=== PATIENT | female | born 1955 | race African-American/Black ===

== ENCOUNTER 2016-09-12 14:55 | Emergency (ER) | payer MEDICARE, OTHER ==
[~2016-09-12] VITALS: Ht 165.1 cm; Wt 140.6 kg
[~2016-09-12 14:55] MED LIST: ASPI325T8 PO; ATOR40TA PO; CIPR500T PO; GLYB5TAB3 PO; HYDR-2758 PO; LINA5TAB4 PO; LISI1TAB7 PO; LOSA1TAB17 PO; PHEN-444 PO
[2016-09-12 15:56] VITALS: BP 138/65
--- NOTE | 2016-09-12 16:05 | RAD ---
Right foot, 3 views, 09/12/2016: History: Foot pain There are moderate scattered degenerative changes with moderate spurring at the midfoot level. There is a large inferior calcaneal spur. Degenerative changes are present first MTP joint. No acute fracture or dislocation is identified. There is mild subcutaneous edema about the foot. IMPRESSION: 1. Moderate degenerative change. 2. No acute bony abnormality is detected.
--- NOTE | 2016-09-12 16:11 | PHYS DOC ---
Past Medical History Past Medical History: Diabetes-Type II, High Cholesterol, Hypertension, Kidney Stone Past Surgical History: Additional Past Surgical Histo: STENT IN LEFT KIDNEY Alcohol Use: Occasionally Drug Use: None Adult General Chief Complaint Chief Complaint: FOOT INJURY PAIN [facility] HPI Patient is a 61 year old female presents to the emergency department stating that she has having right foot pain and discomfort. She states that it starts underneath her foot in the middle and radiates around the lateral part of the foot onto the top of the foot. She denies any injury or trauma. She states the pain started on Sunday she hasn't been unable to bear weight has been using a cane to help with ambulation. Patient states she is taken Aleve and ibuprofen with minimal relief. She does have swelling noted no bruising or discoloration noted. Peripheral pulses 2+ cap refill brisk less than 2 seconds. Review of Systems Review of Systems Constitutional: Denies fever or chills [] Respiratory: Denies cough or shortness of breath [] Cardiovascular: No additional information not addressed in HPI [] Musculoskeletal: Denies back pain. Complaint of right foot pain Integument: Denies rash or skin lesions [] Neurologic: Denies headache, focal weakness or sensory changes [] Current Medications Current Medications Current Medications Medications (Trade) Dose Ordered Sig/Kaley Start Time Stop Time Status Last Admin Dose Admin Acetaminophen/ Hydrocodone Bitart (Lortab 5/325) 2 tab 1X ONCE 09/12/16 16:15 09/12/16 16:16 DC Allergies Allergies Allergies Coded Allergies Type Severity Reaction Last Updated Verified metformin Adverse Reaction Intermediate DIZZY 08/06/15 Yes Physical Exam Physical Exam Constitutional: Well developed, well nourished, no acute distress, non-toxic appearance. [] HENT: Normocephalic, atraumatic Eyes: PERRLA, EOMI, conjunctiva normal, no discharge. [] Neck: Normal range of motion, no tenderness, supple, no stridor. [] Cardiovascular:Heart rate regular rhythm Lungs & Thorax: No respiratory distress noted Skin: Warm, dry, no erythema, no rash. [] Extremities: Right foot tenderness, tenderness noted on the dorsal part of the foot with tenderness noted along the fifth metatarsal no discoloration patient does have swelling noted. Pulses are 2+ cap refill brisk less than 2 seconds. No cyanosis, no clubbing, ROM intact, no edema. [] Neurologic: Alert and oriented X 3, normal motor function, normal sensory function, no focal deficits noted. [] Psychologic: Affect normal, judgement normal, mood normal. [] Current Patient Data Vital Signs Vital Signs Date Time Temp Pulse Resp B/P (MAP) Pulse Ox O2 Delivery O2 Flow Rate FiO2 09/12/16 15:56 98.7 90 20 138/65 (89) 97 Room Air 98.7 EKG EKG [] Radiology/Procedures Radiology/Procedures [facility] [address] [place] [address] IMAGING REPORT Signed PATIENT: GREG CORTES ACCOUNT: [id number] : 1955 LOCATION: ER AGE: 61 SEX: F EXAM STATUS: PRE ER ORD. PHYSICIAN: JENNIFER MACEDO APRN REASON: woke up with mid right foot pain today, no known injury. PROCEDURE: FOOT RIGHT 3V Right foot, 3 views, 09/12/2016: History: Foot pain There are moderate scattered degenerative changes with moderate spurring at the midfoot level. There is a large inferior calcaneal spur. Degenerative changes are present first MTP joint. No acute fracture or dislocation is identified. There is mild subcutaneous edema about the foot. IMPRESSION: 1. Moderate degenerative change. 2. No acute bony abnormality is detected. DICTATED and SIGNED BY: ADONIS SOW MD DATE: 09/12/16 1601 CC: JENNIFER MACEDO APRN; UNKNOWN PCP NAME ~ [] Course & Med Decision Making Course & Med Decision Making Pertinent Labs and Imaging studies reviewed. (See chart for details) Patient will be provided with hydrocodone here in the emergency department. She' ll be discharged home with a posterior short leg splint with a walker. She'll be recommended to follow-up with orthopedic in the next week. Recommended ice packs elevation as much as possible. Ibuprofen or Aleve for pain and discomfort. Signs symptoms to return back to emergency department been provided. Patient agrees with discharge instructions treatment regimens and follow-up recommendations. [] Dragon Disclaimer Dragon Disclaimer This electronic medical record was generated, in whole or in part, using a voice recognition dictation system. Departure Departure Impression: Primary Impression: Right foot pain Disposition: 01 HOME, SELF-CARE Condition: STABLE Referrals: UNKNOWN PCP NAME (PCP) SHERI GARCIA MD Patient Instructions: Foot Sprain-Brief, RICE - Routine Care for Injuries, Easy -to-Read, Splint Care, [id number], Walker-Brief Additional Instructions: X-rays were did not reveal any abnormalities with the bones. Wear the splint to follow-up with orthopedic. Ice packs on 20 minutes off 20 minutes several times a day. Elevation as much as possible. Ibuprofen or Aleve for pain and discomfort. Use the walker to help with ambulation no weightbearing on the right foot. Follow-up with orthopedic in the next week. Return back to emergency prior signs symptoms become worse. Splinting Splinting : Location: right leg Hand-Made Type: orthoglass Splint: posterior short leg Pre-Proc Neuro Vasc Exam: normal Post-Proc Neuro Vasc Exam: normal JENNIFER MACEDO APRN Sep 12, 2016 16:11
[2016-09-12] MEDS ORDERED: HYDROcodone/APAP 5/325MG 1 TAB TABLET PO ONE (16:15)
== END 2016-09-12 17:02 | disposition home or self-care (01) ==
LOC: ER 14:55
DX: M79.671 Pain in right foot (principal); E11.9 Type 2 diabetes mellitus without complications; E78.00 Pure hypercholesterolemia, unspecified; I10 Essential (primary) hypertension; Z87.442 Personal history of urinary calculi; Z88.8 Allergy status to other drugs, medicaments and biological substances
CPT/HCPCS: 29515; 73630; 99284-25

== ENCOUNTER 2016-11-03 18:21 | Emergency (ER) | payer MEDICARE, OTHER ==
[~2016-11-03] VITALS: Ht 165.1 cm; Wt 144.7 kg
[2016-11-03] MEDS ORDERED: IV NORMAL SALINE 500ML BAG 500 ML IV ONE (18:45)
[2016-11-03 18:48] LABS: BASO # 0.1 x10^3/uL (0.0-0.2); BASO % 1 % (0-3); EOS % 6 % (0-3); HEMATOCRIT 40.2 % (36.0-47.0); HEMOGLOBIN 13.4 g/dL (12.0-15.5); LYMPH # 3.1 x10^3/uL (1.0-4.8); LYMPH % 29 % (24-48); MEAN CORPUSCULAR HEMOGLOBIN 32 pg (25-35); MEAN CORPUSCULAR HGB CONC 33 g/dL (31-37); MEAN CORPUSCULAR VOLUME 95 fL (79-100); MONO % 8 % (0-9); NEUT % 56 % (31-73); PLATELET COUNT 301 x10^3/uL (140-400); RED BLOOD COUNT 4.23 x10^6/uL (3.50-5.40); RED CELL DISTRIBUTION WIDTH 15.3 % (11.5-14.5); WHITE BLOOD COUNT 10.7 x10^3/uL (4.0-11.0)
[2016-11-03 18:59] LABS: PROTHROMBIN TIME PATIENT 12.5 SEC (11.7-14.0)
[2016-11-03 19:01] LABS: CALCIUM 9.2 mg/dL (8.5-10.1); CREATININE 1.5 mg/dL (0.6-1.0); GFR 42.7; POTASSIUM 3.6 mmol/L (3.5-5.1)
[2016-11-03 19:07] LABS: ALBUMIN 3.4 g/dL (3.4-5.0); ALBUMIN/GLOBULIN RATIO 0.6 (1.0-1.7); MAGNESIUM 1.7 mg/dL (1.8-2.4); TOTAL BILIRUBIN 0.3 mg/dL (0.2-1.0); TOTAL PROTEIN 8.7 g/dL (6.4-8.2)
[2016-11-03 19:16] LABS: BILIRUBIN,URINE NEGATIVE (NEG); GLUCOSE,URINE NEGATIVE (NEG); NITRITE,URINE NEGATIVE (NEG); PH,URINE 5.5; PROTEIN,URINE NEGATIVE (NEG-TRACE); UROBILINOGEN,URINE 0.2 mg/dL (0.2 mg/dL)
[2016-11-03 19:54] LABS: BACTERIA,URINE 0 /HPF (0-FEW); RBC,URINE 20-40 /HPF (0-2)
[2016-11-03 20:00] VITALS: BP 158/74
[2016-11-03] MEDS ORDERED: CEPH-264 PO (20:13)
--- NOTE | 2016-11-03 20:13 | PHYS DOC ---
Past Medical History Past Medical History: Diabetes-Type II, High Cholesterol, Hypertension, Kidney Stone Past Surgical History: Additional Past Surgical Histo: STENT IN LEFT KIDNEY Alcohol Use: Occasionally Additional Information: 1/2 PINT A GIN EVERY FEW DAYS Drug Use: None Adult General Chief Complaint Chief Complaint: Palpitations HPI HPI Patient is a 61 year old female who presents with palpitations. The patient states that she felt onset of anxiety & chest palpitations shortly prior to arrival here. She feels that her heart is racing. Denies chest pain, shortness of breath, lower extremity pain/swelling. She reports previous history of similar symptoms with cardiology evaluation, never received cardiac diagnosis. She has history of diabetes, hypertension, hyperlipidemia. Review of Systems Review of Systems Constitutional: Denies fever or chills Eyes: Denies change in visual acuity HENT: Denies nasal congestion or sore throat Respiratory: Denies cough or shortness of breath Cardiovascular: Reports palpitations. Denies chest pain or edema GI: Denies abdominal pain, nausea, vomiting, bloody stools or diarrhea : Denies dysuria or hematuria Musculoskeletal: Denies back pain or joint pain Integument: Denies rash or skin lesions Neurologic: Denies headache, focal weakness or sensory changes Current Medications Current Medications Current Medications Medications (Trade) Dose Ordered Sig/Kaley Start Time Stop Time Status Last Admin Dose Admin Lorazepam (Ativan) 1 mg 1X ONCE 11/03/16 18:45 11/03/16 18:46 DC 11/03/16 18:58 1 MG Sodium Chloride 500 ml @ 0 mls/hr 1X ONCE 11/03/16 18:45 11/03/16 18:46 DC 11/03/16 18:59 999 MLS/HR Allergies Allergies Allergies Coded Allergies Type Severity Reaction Last Updated Verified metformin Adverse Reaction Intermediate DIZZY 08/06/15 Yes Physical Exam Physical Exam Constitutional: morbidly obese, no acute distress, non-toxic appearance. HENT: Normocephalic, atraumatic, bilateral external ears normal, oropharynx moist, nose normal. Eyes: conjunctiva normal, no discharge. Neck: supple, no stridor. Cardiovascular: RRR, no murmurs, no edema. Lungs & Thorax: LCTAB, no wheezing, no respiratory distress. Abdomen: soft, nontender, nondistended. Skin: Warm, dry, no erythema, no rash. Back: No tenderness. Extremities: No tenderness, no edema. no calf tenderness or swelling Neurologic: Alert and oriented X 3, no focal deficits noted. Psychologic: anxious Current Patient Data Vital Signs Vital Signs Date Time Temp Pulse Resp B/P (MAP) Pulse Ox O2 Delivery O2 Flow Rate FiO2 11/03/16 20:00 88 20 158/74 (102) 96 Room Air 11/03/16 18:32 98.1 98.1 Lab Values Laboratory Tests Test 11/03/16 18:38 11/03/16 19:00 White Blood Count 10.7 x10^3/uL (4.0-11.0) Red Blood Count 4.23 x10^6/uL (3.50-5.40) Hemoglobin 13.4 g/dL (12.0-15.5) Hematocrit 40.2 % (36.0-47.0) Mean Corpuscular Volume 95 fL (79-100) Mean Corpuscular Hemoglobin 32 pg (25-35) Mean Corpuscular Hemoglobin Concent 33 g/dL (31-37) Red Cell Distribution Width 15.3 % (11.5-14.5) H Platelet Count 301 x10^3/uL (140-400) Neutrophils (%) (Auto) 56 % (31-73) Lymphocytes (%) (Auto) 29 % (24-48) Monocytes (%) (Auto) 8 % (0-9) Eosinophils (%) (Auto) 6 % (0-3) H Basophils (%) (Auto) 1 % (0-3) Neutrophils # (Auto) 5.9 x10^3uL (1.8-7.7) Lymphocytes # (Auto) 3.1 x10^3/uL (1.0-4.8) Monocytes # (Auto) 0.9 x10^3/uL (0.0-1.1) Eosinophils # (Auto) 0.6 x10^3/uL (0.0-0.7) Basophils # (Auto) 0.1 x10^3/uL (0.0-0.2) Prothrombin Time 12.5 SEC (11.7-14.0) Prothrombin Time INR 1.0 (0.8-1.1) PTT 24 SEC (24-38) Sodium Level 139 mmol/L (136-145) Potassium Level 3.6 mmol/L (3.5-5.1) Chloride Level 101 mmol/L (98-107) Carbon Dioxide Level 32 mmol/L (21-32) Anion Gap 6 (6-14) Blood Urea Nitrogen 25 mg/dL (7-20) H Creatinine 1.5 mg/dL (0.6-1.0) H Estimated GFR (Cockcroft-Gault) 42.7 BUN/Creatinine Ratio 17 (6-20) Glucose Level 192 mg/dL (70-99) H Calcium Level 9.2 mg/dL (8.5-10.1) Magnesium Level 1.7 mg/dL (1.8-2.4) L Total Bilirubin 0.3 mg/dL (0.2-1.0) Aspartate Amino Transferase (AST) 20 U/L (15-37) Alanine Aminotransferase (ALT) 33 U/L (14-59) Alkaline Phosphatase 75 U/L (46-116) Troponin I Quantitative < 0.017 ng/mL (0.000-0.055) LL-Vps-S-Type Natriuretic Peptide 13 pg/mL (0-124) Total Protein 8.7 g/dL (6.4-8.2) H Albumin 3.4 g/dL (3.4-5.0) Albumin/Globulin Ratio 0.6 (1.0-1.7) L Urine Collection Type Unknown Urine Color Yellow Urine Clarity Clear Urine pH 5.5 Urine Specific [place] 1.020 Urine Protein Negative mg/dL (NEG-TRACE) Urine Glucose (UA) Negative mg/dL (NEG) Urine Ketones (Stick) Negative mg/dL (NEG) Urine Blood Large (NEG) Urine Nitrite Negative (NEG) Urine Bilirubin Negative (NEG) Urine Urobilinogen Dipstick 0.2 mg/dL (0.2 mg/dL) Urine Leukocyte Esterase Moderate (NEG) Urine RBC 20-40 /HPF (0-2) Urine WBC 11-20 /HPF (0-4) Urine Bacteria 0 /HPF (0-FEW) Laboratory Tests 11/03/16 18:38 Laboratory Tests 11/03/16 18:38 EKG EKG interpreted by me: NSR rate 87, no acute St/T wave changes, normal intervals, no ectopy.[] Radiology/Procedures Radiology/Procedures CXR: no cardiomegaly, no infiltrate, no pneumothorax.[] Course & Med Decision Making Course & Med Decision Making Pertinent Labs and Imaging studies reviewed. (See chart for details) The patient presents with anxiety & palpitations. EKG shows sinus rhythm, high normal heart rate on tele monitor. Gave IV fluids & ativan. Obtained labs, EKG , CXR. No acute abnormality identified. She felt better & was resting comfortably at time of reassessment. She wanted to go home. Recommend rest, hydration, take all meds exactly as prescribed, follow up with PCP in 2-3 days. She wants to decrease her dose of losartan/HCTZ but I recommended continue as prescribed & discuss with PCP. Come back for severe chest pain or shortness of breath, any otherwise worsening condition. Discharged home in stable condition. [] Dragon Disclaimer Dragon Disclaimer This electronic medical record was generated, in whole or in part, using a voice recognition dictation system. Departure Departure Impression: Primary Impression: Palpitations Additional Impression: Urinary tract infection Disposition: HOME, SELF-CARE Condition: STABLE Referrals: NIDHI METZGER (PCP) Patient Instructions: Palpitations, [id number], Urinary Tract Infection, Easy -to-Read Additional Instructions: You were seen in the emergency department today for palpitations. You had a normal cardiac exam. However you did have a urinary tract infection. Please take the prescribed antibiotic. Take all other medications as prescribed by your doctor. Please make a follow-up appointment with your primary care doctor in 2-3 days; at that time he can discuss her medications and whether he should continue taking all of them. Return to the emergency department for fast heart rate, severe chest pain, severe shortness of breath, high fever, severe abdominal pain or back pain, uncontrolled vomiting, any otherwise worsening condition. Scripts Cephalexin (KEFLEX) 500 Mg Capsule 1 CAP PO BID, #14 CAP Prov: DYLLAN SAVAGE MD 11/03/16 Problem Qualifiers DYLLAN SAVAGE MD Nov 03, 2016 20:13
--- NOTE | 2016-11-04 07:49 | RAD ---
Chest radiograph 11/03/2016 8:34 PM Indication: Palpitations, history of diabetes Comparison: Chest radiograph 08/06/2015 Technique: Single portable upright frontal view of the chest is provided. Findings: Cardiomediastinal silhouette is within normal limits. No pleural effusions, pulmonary vascular congestion or pneumothorax. The lungs are clear. Mild acromioclavicular osteoarthrosis. Impression: No acute cardiopulmonary process.
--- NOTE | 2016-11-04 07:57 | EKG ---
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
== END 2016-11-03 20:20 | disposition home or self-care (01) ==
LOC: ER 18:21
DX: R00.2 Palpitations (principal); N39.0 Urinary tract infection, site not specified; F41.9 Anxiety disorder, unspecified; I10 Essential (primary) hypertension; E78.00 Pure hypercholesterolemia, unspecified; E11.9 Type 2 diabetes mellitus without complications; Z87.442 Personal history of urinary calculi; Z88.8 Allergy status to other drugs, medicaments and biological substances
CPT/HCPCS: 36415; 71010; 80053; 81001; 83735; 83880; 84484; 85025; 85610; 85730; 87086; 93005; 96361; 96374; 99285; J2060; J7040

== ENCOUNTER 2017-08-10 16:08 | Emergency (ER) | payer MEDICARE, OTHER ==
[2017-08-10 16:39] LABS: ADD MAN DIFF? NO
[2017-08-10 16:41] LABS: BASO # 0.1 x10^3/uL (0.0-0.2); BASO % 1 % (0-3); EOS # 0.6 x10^3/uL (0.0-0.7); EOS % 7 % (0-3); HEMATOCRIT 39.1 % (36.0-47.0); HEMOGLOBIN 13.3 g/dL (12.0-15.5); LYMPH # 2.7 x10^3/uL (1.0-4.8); LYMPH % 31 % (24-48); MEAN CORPUSCULAR HEMOGLOBIN 32 pg (25-35); MEAN CORPUSCULAR HGB CONC 34 g/dL (31-37); MEAN CORPUSCULAR VOLUME 94 fL (79-100); MONO # 0.7 x10^3/uL (0.0-1.1); MONO % 9 % (0-9); NEUT # 4.6 x10^3uL (1.8-7.7); NEUT % 53 % (31-73); PLATELET COUNT 292 x10^3/uL (140-400); RED BLOOD COUNT 4.17 x10^6/uL (3.50-5.40); RED CELL DISTRIBUTION WIDTH 15.3 % (11.5-14.5); WHITE BLOOD COUNT 8.7 x10^3/uL (4.0-11.0)
[2017-08-10] MEDS: ASPIRIN CHEWABLE 81 MG TABLET. PO (16:45)
[2017-08-10 18:36] LABS: ANION GAP 5 (6-14); BLOOD UREA NITROGEN 21 mg/dL (7-20); BUN/CREATININE RATIO 14 (6-20); CALCIUM 8.6 mg/dL (8.5-10.1); CARBON DIOXIDE 27 mmol/L (21-32); CHLORIDE 103 mmol/L (98-107); CREATININE 1.5 mg/dL (0.6-1.0); GFR 42.6; GLUCOSE 200 mg/dL (70-99); POTASSIUM 3.7 mmol/L (3.5-5.1); SODIUM 135 mmol/L (136-145)
[2017-08-10 18:39] LABS: PROTHROMBIN TIME PATIENT 12.8 SEC (11.7-14.0)
[2017-08-10 18:39] LABS: TROPONINI < 0.017 ng/mL (0.000-0.055)
[2017-08-10 18:40] LABS: ALBUMIN 2.8 g/dL (3.4-5.0); ALBUMIN/GLOBULIN RATIO 0.6 (1.0-1.7); ALK PHOS 62 U/L (46-116); ALT (SGPT) 24 U/L (14-59); AST (SGOT) 21 U/L (15-37); LIPASE 117 U/L (73-393); MAGNESIUM 1.7 mg/dL (1.8-2.4); TOTAL BILIRUBIN 0.2 mg/dL (0.2-1.0); TOTAL PROTEIN 7.8 g/dL (6.4-8.2)
[2017-08-10 18:44] LABS: NT-PRO BNP 22 pg/mL (0-124)
[2017-08-10 18:44] LABS: CKMB INDEX 0.4 % (0-4); CKMB MASS 0.7 ng/mL (0.0-3.6); CREATINE KINASE 168 U/L (26-192)
== END 2017-08-10 20:23 | disposition home or self-care (01) ==
LOC: ER 16:08
DX: F41.0 Panic disorder [episodic paroxysmal anxiety] (principal); E11.9 Type 2 diabetes mellitus without complications; E78.00 Pure hypercholesterolemia, unspecified; I10 Essential (primary) hypertension; Z88.8 Allergy status to other drugs, medicaments and biological substances
CPT/HCPCS: 36415; 70450; 71045; 80053; 82553; 83690; 83735; 83880; 84484; 85025; 85610; 93005; 96374; 99285-25; J2060

== ENCOUNTER → 2018-01-28 | Outpatient (CLI) | payer MEDICARE, OTHER ==
[2017-08-10 19:57] VITALS: BP 143/72
[~2018-01-28] MED LIST changes: +CEPH-264 PO; -HYDR-2758 PO; +HYDR-2761 PO; +LINA5TAB PO; -LINA5TAB4 PO; -LOSA1TAB17 PO; +LOSA1TAB22 PO
--- NOTE | 2018-01-28 15:31 | RAD ---
DATE: January 28, 2018 EXAM: MAMMO MOIZ SCREENING BILATERAL HISTORY: Screening study. COMPARISON: None. Baseline study This study was interpreted with the benefit of Computerized Aided Detection (CAD). 2-D digital mammographic views of both breasts were performed in the CC and MLO projections. 3-D digital tomosynthesis images of both breasts were performed in the CC and MLO projections and reviewed on a computer workstation. FINDINGS: Breast Density: FATTY The breast parenchyma is primarily fatty replaced. Breast parenchyma level density A.. There are no dominant suspicious masses, suspicious microcalcifications or evidence of architectural distortion. IMPRESSION: No mammographic indicators for malignancy. BI-RADS CATEGORY: 1 NEGATIVE RECOMMENDED FOLLOW-UP: 12M 12 MONTH FOLLOW-UP PQRS compliance statement: Patient information was entered into a reminder system with a target due date January 29, 2019 for the next mammogram. Mammography is a sensitive method for finding small breast cancers, but it does not detect them all and is not a substitute for careful clinical examination. A negative mammogram does not negate a clinically suspicious finding and should not result in delay in biopsying a clinically suspicious abnormality. "Our facility is accredited by the [employer] Mammography Program." The patient's breast density may affect the ability of mammography to detect breast cancer. There are 4 categories of breast density, A, B, C and D. Breast density A means that most of the breast tissue is replaced with adipose tissue and therefore is not dense. Breast density B means that the breast tissue is mildly dense and scattered. Breast density C means that the breast tissue is heterogeneously dense. Breast density D means that the breast tissue is very dense. Breast densities especially C and D may decrease the sensitivity of mammography to detect breast cancer. Therefore, the patient may benefit from 3-D breast mammography (3D breast tomography) as a part of their screening mammogram. Insurance may or may not pay for this additional imaging. The patient's breast density based on today's mammogram is category A.
== END | disposition home or self-care (01) ==
LOC: MAMMO 14:10
PROVIDERS: ATTEND Family Medicine
DX: Z12.31 Encounter for screening mammogram for malignant neoplasm of breast (principal)
CPT/HCPCS: 77063; 77067

== ENCOUNTER 2018-06-02 13:45 | Emergency (ER) | payer MEDICARE, OTHER ==
[~2018-06-02] VITALS: Ht 165.1 cm; Wt 143.3 kg
[2018-06-02] MEDS ORDERED: IV NORMAL SALINE 500ML BAG 500 ML IV ONE (14:15)
[2018-06-02] MEDS ORDERED: fentaNYL PF VIAL 100 MCG/2 ML VIAL IV ONE (14:15)
[2018-06-02 14:19] LABS: BASO # 0.1 x10^3/uL (0.0-0.2); BASO % 1 % (0-3); EOS # 0.4 x10^3/uL (0.0-0.7); EOS % 4 % (0-3); HEMATOCRIT 37.6 % (36.0-47.0); HEMOGLOBIN 12.3 g/dL (12.0-15.5); LYMPH # 2.1 x10^3/uL (1.0-4.8); LYMPH % 22 % (24-48); MEAN CORPUSCULAR HEMOGLOBIN 32 pg (25-35); MEAN CORPUSCULAR HGB CONC 33 g/dL (31-37); MEAN CORPUSCULAR VOLUME 96 fL (79-100); MONO # 1.1 x10^3/uL (0.0-1.1); MONO % 11 % (0-9); NEUT % 62 % (31-73); PLATELET COUNT 300 x10^3/uL (140-400); RED BLOOD COUNT 3.92 x10^6/uL (3.50-5.40); RED CELL DISTRIBUTION WIDTH 15.1 % (11.5-14.5); WHITE BLOOD COUNT 9.6 x10^3/uL (4.0-11.0)
--- NOTE | 2018-06-02 14:35 | RAD ---
EXAM: Right foot, 3 views. HISTORY: Pain. COMPARISON: 09/12/2016 FINDINGS: 3 views of the right foot are obtained. There is no fracture, dislocation or subluxation. There is a stable small cyst within the first metatarsal head. There is a moderate plantar spur. There is midfoot and tibiotalar spurring. IMPRESSION: 1. No acute osseous finding. 2. Stable mid and hindfoot osteoarthritis. 3. Moderate plantar spur. 4. Stable small cyst within the first metatarsal head. Electronically signed by: Jennifer Bernard MD (06/02/2018 2:31 PM) [facility]
[2018-06-02 14:37] LABS: CALCIUM 8.9 mg/dL (8.5-10.1); CREATININE 1.4 mg/dL (0.6-1.0); POTASSIUM 3.8 mmol/L (3.5-5.1)
[2018-06-02 14:41] LABS: ALBUMIN 3.3 g/dL (3.4-5.0); ALBUMIN/GLOBULIN RATIO 0.6 (1.0-1.7); C-REACTIVE PROTEIN 61.2 mg/L (0-3.3); TOTAL BILIRUBIN 0.5 mg/dL (0.2-1.0); TOTAL PROTEIN 8.8 g/dL (6.4-8.2); URIC ACID 9.3 mg/dL (2.6-6.0)
[2018-06-02 15:00] VITALS: BP 142/78
[2018-06-02] MEDS ORDERED: HYDROcodone/APAP 5/325MG 1 TAB TABLET PO ONE (15:00)
[2018-06-02] MEDS ORDERED: methylPREDNISolone SOD SUCC PF 125 MG/2 ML VIAL. IV ONE (15:00)
[2018-06-02] MEDS ORDERED: HYDR-3164 PO (15:02)
[2018-06-02] MEDS ORDERED: METH4TAB2 PO (15:02)
--- NOTE | 2018-06-02 15:02 | PHYS DOC ---
Past Medical History Past Medical History: Diabetes-Type II, High Cholesterol, Hypertension, Kidney Stone Past Surgical History: Additional Past Surgical Histo: STENT IN LEFT KIDNEY Alcohol Use: Occasionally Drug Use: None Adult General Chief Complaint Chief Complaint: FOOT INJURY PAIN HPI HPI Patient is a 63 year old female who presents with pinning of right foot pain. Patient complaining of pain in the metatarsal area for the last 4 days as a constant pain that getting worse with walking and touching her foot. Patient denies injury, fever and chills, focal neuro deficit. Patient states she had the same pain in left foot previously. She denies history of gout. Review of Systems Review of Systems Constitutional: Denies fever or chills [] Eyes: Denies change in visual acuity, redness, or eye pain [] HENT: Denies nasal congestion or sore throat [] Respiratory: Denies cough or shortness of breath [] Cardiovascular: No additional information not addressed in HPI [] GI: Denies abdominal pain, nausea, vomiting, bloody stools or diarrhea [] : Denies dysuria or hematuria [] Musculoskeletal: Denies back pain, reports joint pain [] Integument: Denies rash or skin lesions [] Neurologic: Denies headache, focal weakness or sensory changes [] Endocrine: Denies polyuria or polydipsia [] All other systems were reviewed and found to be within normal limits, except as documented in this note. Current Medications Current Medications Current Medications Medications (Trade) Dose Ordered Sig/Kaley Start Time Stop Time Status Last Admin Dose Admin Acetaminophen/ Hydrocodone Bitart (Lortab 5/325) 1 tab 1X ONCE 06/02/18 15:00 06/02/18 15:01 DC 06/02/18 15:05 1 TAB Fentanyl Citrate (Fentanyl 2ml Vial) 50 mcg 1X ONCE 06/02/18 14:15 06/02/18 14:16 DC 06/02/18 14:24 50 MCG Methylprednisolone Sodium Succinate (SOLU-Medrol 125MG VIAL) 125 mg 1X ONCE 06/02/18 15:00 06/02/18 15:01 DC 06/02/18 15:04 125 MG Sodium Chloride 500 ml @ 500 mls/hr 1X ONCE 06/02/18 14:15 06/02/18 15:14 DC 06/02/18 14:23 500 MLS/HR Allergies Allergies Allergies Coded Allergies Type Severity Reaction Last Updated Verified metformin Adverse Reaction Intermediate DIZZY 08/06/15 Yes Physical Exam Physical Exam Constitutional: Well developed, well nourished, moderate distress, non-toxic appearance. [] HENT: Normocephalic, atraumatic Eyes: PERRLA, EOMI, conjunctiva normal, no discharge. [] Neck: Normal range of motion, no tenderness, supple, no stridor. [] Cardiovascular:Heart rate regular rhythm, no murmur [] Lungs & Thorax: Bilateral breath sounds clear to auscultation [] Extremities: Right foot with mild edema and warm and tenderness in proximal metatarsal area without deformity, no cyanosis, no clubbing, ROM painful. Psychologic: Affect normal, judgement normal, mood normal. [] Current Patient Data Vital Signs Vital Signs Date Time Temp Pulse Resp B/P (MAP) Pulse Ox O2 Delivery O2 Flow Rate FiO2 06/02/18 15:00 78 18 142/78 (99) 98 Room Air 06/02/18 13:50 99.3 99.3 Lab Values Laboratory Tests Test 06/02/18 14:00 White Blood Count 9.6 x10^3/uL (4.0-11.0) Red Blood Count 3.92 x10^6/uL (3.50-5.40) Hemoglobin 12.3 g/dL (12.0-15.5) Hematocrit 37.6 % (36.0-47.0) Mean Corpuscular Volume 96 fL (79-100) Mean Corpuscular Hemoglobin 32 pg (25-35) Mean Corpuscular Hemoglobin Concent 33 g/dL (31-37) Red Cell Distribution Width 15.1 % (11.5-14.5) H Platelet Count 300 x10^3/uL (140-400) Neutrophils (%) (Auto) 62 % (31-73) Lymphocytes (%) (Auto) 22 % (24-48) L Monocytes (%) (Auto) 11 % (0-9) H Eosinophils (%) (Auto) 4 % (0-3) H Basophils (%) (Auto) 1 % (0-3) Neutrophils # (Auto) 6.0 x10^3uL (1.8-7.7) Lymphocytes # (Auto) 2.1 x10^3/uL (1.0-4.8) Monocytes # (Auto) 1.1 x10^3/uL (0.0-1.1) Eosinophils # (Auto) 0.4 x10^3/uL (0.0-0.7) Basophils # (Auto) 0.1 x10^3/uL (0.0-0.2) Sodium Level 140 mmol/L (136-145) Potassium Level 3.8 mmol/L (3.5-5.1) Chloride Level 101 mmol/L (98-107) Carbon Dioxide Level 27 mmol/L (21-32) Anion Gap 12 (6-14) Blood Urea Nitrogen 19 mg/dL (7-20) Creatinine 1.4 mg/dL (0.6-1.0) H Estimated GFR (Cockcroft-Gault) 46.0 BUN/Creatinine Ratio 14 (6-20) Glucose Level 143 mg/dL (70-99) H Uric Acid 9.3 mg/dL (2.6-6.0) H Calcium Level 8.9 mg/dL (8.5-10.1) Total Bilirubin 0.5 mg/dL (0.2-1.0) Aspartate Amino Transferase (AST) 28 U/L (15-37) Alanine Aminotransferase (ALT) 31 U/L (14-59) Alkaline Phosphatase 64 U/L (46-116) C-Reactive Protein, Quantitative 61.2 mg/L (0-3.3) H Total Protein 8.8 g/dL (6.4-8.2) H Albumin 3.3 g/dL (3.4-5.0) L Albumin/Globulin Ratio 0.6 (1.0-1.7) L Laboratory Tests 06/02/18 14:00 Laboratory Tests 06/02/18 14:00 EKG EKG [] Radiology/Procedures Radiology/Procedures [facility] [address] [facility] [place], [place] [id number] IMAGING REPORT Signed PATIENT: GREG CORTES ACCOUNT: [id number] : 1955 LOCATION: ER AGE: 63 SEX: F EXAM STATUS: PRE ER ORD. PHYSICIAN: QUINCY SCHROEDER MD REASON: pain without injury PROCEDURE: FOOT RIGHT 3V EXAM: Right foot, 3 views. HISTORY: Pain. COMPARISON: 09/12/2016 FINDINGS: 3 views of the right foot are obtained. There is no fracture, dislocation or subluxation. There is a stable small cyst within the first metatarsal head. There is a moderate plantar spur. There is midfoot and tibiotalar spurring. IMPRESSION: 1. No acute osseous finding. 2. Stable mid and hindfoot osteoarthritis. 3. Moderate plantar spur. 4. Stable small cyst within the first metatarsal head. Electronically signed by: Jennifer Blackwell MD (06/02/2018 2:31 PM) [facility] DICTATED and SIGNED BY: JENNIFER BLACKWELL MD DATE: 06/02/18 143 Course & Med Decision Making Course & Med Decision Making Pertinent Labs and Imaging studies reviewed. (See chart for details) Evaluation of patient in ER showed 63-year-old female patient with complaining of right foot pain for several days without injury. Patient had no focal tenderness and edema without sign of injury or abscess or cellulitis. Patient had elevation of uric acid. Patient had episodes of joint pain without injury previously. Patient treated with fentanyl and plan to discharge to diagnose of gouty arthritis and instruction to follow up with her primary care physician Aracely Disclaimer Aracely Disclaimer This electronic medical record was generated, in whole or in part, using a voice recognition dictation system. Departure Departure Impression: Primary Impression: Acute gouty arthritis Additional Impressions: Elevated uric acid in blood Renal insufficiency Disposition: HOME, SELF-CARE (at 1505) Condition: IMPROVED Referrals: NIDHI METZGER (PCP) Patient Instructions: Gout Additional Instructions: Drink plenty of liquids Follow-up with your primary care physician in 2-3 days for preventive treatment of gout Return to ER if not getting better Do not eat red meat Scripts Hydrocodone/Apap 5-325 (NORCO 5-325 TABLET) 1 Each Tablet 1-2 EACH PO PRN Q6HRS PRN for PAIN, #15 as needed for pain Prov: QUINCY SCHROEDER MD 06/02/18 Methylprednisolone (MEDROL) 4 Mg Tab.ds.pk 1 PKG PO UD for inflammation, #1 PKG Prov: QUINCY SCHROEDER MD 06/02/18 Problem Qualifiers QUINCY SCHROEDER MD Jun 02, 2018 15:02
== END 2018-06-02 15:26 | disposition home or self-care (01) ==
LOC: ER 13:45
DX: M10.9 Gout, unspecified (principal); N28.9 Disorder of kidney and ureter, unspecified; M19.071 Primary osteoarthritis, right ankle and foot; M77.31 Calcaneal spur, right foot; I10 Essential (primary) hypertension; E78.00 Pure hypercholesterolemia, unspecified; E11.9 Type 2 diabetes mellitus without complications; Z87.442 Personal history of urinary calculi; Z96.0 Presence of urogenital implants; Z88.8 Allergy status to other drugs, medicaments and biological substances
CPT/HCPCS: 36415; 73630; 80053; 84550; 85025; 86140; 96374; 96375; 99285; J2930; J3010; J7040

== ENCOUNTER 2019-04-30 08:13 | Observation (INO) | payer MEDICARE, OTHER ==
[~2019-04-30] VITALS: Ht 165.1 cm; Wt 140.5 kg
[~2019-04-30 08:13] MED LIST changes: +HYDR-3164 PO; +LISI1TAB20 PO; -LISI1TAB7 PO; +METH4TAB2 PO
[2019-04-30] MEDS ORDERED: IV NORMAL SALINE 1000ML BAG 1,000 ML IV SCH (08:54)
--- NOTE | 2019-04-30 08:59 | PHYS DOC ---
Past Medical History Past Medical History: Diabetes-Type II, High Cholesterol, Hypertension, Kidney Stone Past Surgical History: , Other Additional Past Surgical Histo: STENT IN LEFT KIDNEY Smoking Status: Never Smoker Alcohol Use: Heavy Drug Use: None Adult General Chief Complaint Chief Complaint: Palpitations HPI HPI Patient is a 64 year old -Guyanese female with past medical history significant for uncontrolled hypertension and palpitations who presents secondary to complaint of palpitations and also some sharp left-sided chest pain beneath her axilla that is worse with inspiration and started around 7:00 this morning and has been intermittent only with inspiration. She denies shortness of breath. No medications taken prior to arrival. The patient states that she takes her blood pressure medication in the afternoon and in the evening so she has not taken any this morning. Her systolic pressure is 189 which is elevated for this patient. Review of Systems Review of Systems All other systems were reviewed and found to be within normal limits, except as documented in this note. Current Medications Current Medications Current Medications Medications (Trade) Dose Ordered Sig/Kaley Start Time Stop Time Status Last Admin Dose Admin Aspirin (Children'S Aspirin) 324 mg 1X ONCE 04/30/19 09:00 04/30/19 09:05 DC 04/30/19 09:27 324 MG Hydralazine HCl (Apresoline Inj) 10 mg 1X ONCE 04/30/19 09:00 04/30/19 09:05 DC 04/30/19 09:28 10 MG Sodium Chloride 1,000 ml @ 1,000 mls/hr Q1H 04/30/19 08:54 04/30/19 09:53 DC 04/30/19 09:28 1,000 MLS/HR Allergies Allergies Allergies Coded Allergies Type Severity Reaction Last Updated Verified metformin Adverse Reaction Intermediate DIZZY 08/06/15 Yes Physical Exam Physical Exam Constitutional: Well developed, well nourished, no acute distress, non-toxic appearance. [] HENT: Normocephalic, atraumatic, bilateral external ears normal, oropharynx moist, no oral exudates, nose normal. [] Eyes: PERRLA, EOMI, conjunctiva normal, no discharge. [] Neck: Normal range of motion, no tenderness, supple, no stridor. [] Cardiovascular:Heart rate regular rhythm, no murmur [] Lungs & Thorax: Bilateral breath sounds clear to auscultation [] Abdomen: Bowel sounds normal, soft, no tenderness, no masses, no pulsatile masses. [] Skin: Warm, dry, no erythema, no rash. [] Back: No tenderness, no CVA tenderness. [] Extremities: No tenderness, no cyanosis, no clubbing, ROM intact, no edema. [] Neurologic: Alert and oriented X 3, normal motor function, normal sensory function, no focal deficits noted. [] Psychologic: Affect normal, judgement normal, mood normal. [] Current Patient Data Vital Signs Vital Signs Date Time Temp Pulse Resp B/P (MAP) Pulse Ox O2 Delivery O2 Flow Rate FiO2 04/30/19 09:28 68 178/81 04/30/19 08:27 99.0 17 95 Room Air 99.0 Lab Values Laboratory Tests Test 04/30/19 09:20 White Blood Count 7.4 x10^3/uL (4.0-11.0) Red Blood Count 4.33 x10^6/uL (3.50-5.40) Hemoglobin 13.9 g/dL (12.0-15.5) Hematocrit 41.5 % (36.0-47.0) Mean Corpuscular Volume 96 fL (79-100) Mean Corpuscular Hemoglobin 32 pg (25-35) Mean Corpuscular Hemoglobin Concent 34 g/dL (31-37) Red Cell Distribution Width 15.4 % (11.5-14.5) H Platelet Count 273 x10^3/uL (140-400) Neutrophils (%) (Auto) 55 % (31-73) Lymphocytes (%) (Auto) 30 % (24-48) Monocytes (%) (Auto) 9 % (0-9) Eosinophils (%) (Auto) 5 % (0-3) H Basophils (%) (Auto) 1 % (0-3) Neutrophils # (Auto) 4.0 x10^3/uL (1.8-7.7) Lymphocytes # (Auto) 2.2 x10^3/uL (1.0-4.8) Monocytes # (Auto) 0.7 x10^3/uL (0.0-1.1) Eosinophils # (Auto) 0.4 x10^3/uL (0.0-0.7) Basophils # (Auto) 0.1 x10^3/uL (0.0-0.2) Prothrombin Time 12.5 SEC (11.7-14.0) Prothrombin Time INR 1.0 (0.8-1.1) Activated Partial Thromboplast Time 27 SEC (24-38) Sodium Level 138 mmol/L (136-145) Potassium Level 4.0 mmol/L (3.5-5.1) Chloride Level 103 mmol/L (98-107) Carbon Dioxide Level 26 mmol/L (21-32) Anion Gap 9 (6-14) Blood Urea Nitrogen 13 mg/dL (7-20) Creatinine 1.1 mg/dL (0.6-1.0) H Estimated GFR (Cockcroft-Gault) 60.5 BUN/Creatinine Ratio 12 (6-20) Glucose Level 169 mg/dL (70-99) H Calcium Level 8.8 mg/dL (8.5-10.1) Magnesium Level 1.7 mg/dL (1.8-2.4) L Total Bilirubin 0.3 mg/dL (0.2-1.0) Aspartate Amino Transferase (AST) 23 U/L (15-37) Alanine Aminotransferase (ALT) 25 U/L (14-59) Alkaline Phosphatase 70 U/L (46-116) Creatine Kinase 88 U/L (26-192) Creatine Kinase MB (Mass) < 0.5 ng/mL (0.0-3.6) Creatine Kinase MB Relative Index % (0-4) Troponin I Quantitative < 0.017 ng/mL (0.000-0.055) EH-Kly-G-Type Natriuretic Peptide 61 pg/mL (0-124) Total Protein 7.0 g/dL (6.4-8.2) Albumin 2.9 g/dL (3.4-5.0) L Albumin/Globulin Ratio 0.7 (1.0-1.7) L Lipase 91 U/L (73-393) Thyroid Stimulating Hormone (TSH) 2.415 uIU/mL (0.358-3.74) Laboratory Tests 04/30/19 09:20 Laboratory Tests 04/30/19 09:20 EKG EKG [] EKG shows a sinus rhythm with no ST changes and a heart rate of 71 with normal intervals. Radiology/Procedures Radiology/Procedures Single view of the chest. 04/30/2019 8:58 AM Indication: Chest pain Comparison: Chest radiograph August 10, 2017 Findings: There is no focal consolidation. There is no pleural effusion or pneumothorax. The cardiomediastinal silhouette and pulmonary vasculature are within normal limits. No acute osseous abnormalities are seen. Impression: No evidence of acute cardiopulmonary process. [] Course & Med Decision Making Course & Med Decision Making Pertinent Labs and Imaging studies reviewed. (See chart for details) 1050: This patient was seen for atypical chest pain symptoms and palpitations. She also had elevated blood pressure. She was given 10 mg of hydralazine and her blood pressure was trending down to 168 systolic but after she got up to go to the bathroom it went back up to 205 systolic. The patient also complains of continued epigastric discomfort/a sensation of needing to belch. Given her risk factors and ongoing symptoms and elevated blood pressure that she has been having trouble controlling recently I did recommend admission for observation and chest pain rule out and blood pressure control. We will go ahead and give her 4 mg of Zofran IV and admit for further work-up and evaluation. Dragon Disclaimer Dragon Disclaimer This electronic medical record was generated, in whole or in part, using a voice recognition dictation system. Departure Departure Impression: Primary Impression: Atypical chest pain Additional Impressions: Hypertension Palpitations Disposition: ADMITTED INPATIENT Admitting Physician: HIMS Condition: STABLE Referrals: NIDHI METZGER (PCP) The HEART Score for CP Pts HEART Score for Chest Pain: HEART Score for Chest Pain Response (Comments) Value History Slighlty/Non-Suspicious 0 ECG Normal 0 Age >45 - < 65 1 Risk Factors >3 Risk Factors or Hx CAD 2 Troponin < Normal Limit 0 Total 3 Risk Factors: Risk Factors: DM, HTN, obesity. Risk Scores: Score 0 - 3: 2.5% MACE over next 6 weeks - Discharge Home Score 4 - 6: 20.3% MACE over next 6 weeks - Admit for Clinical Observation Score 7 - 10: 72.7% MACE over next 6 weeks - Early Invasive Strategies Problem Qualifiers KESHA RUFFIN DO Apr 30, 2019 08:59
[2019-04-30] MEDS ORDERED: ASPIRIN CHEWABLE 81 MG TABLET. PO ONE (09:00)
[2019-04-30] MEDS ORDERED: hydrALAZINE 20 MG/ML VIAL. IVP ONE (09:00)
--- NOTE | 2019-04-30 09:26 | RAD ---
Single view of the chest. 04/30/2019 8:58 AM Indication: Chest pain Comparison: Chest radiograph August 10, 2017 Findings: There is no focal consolidation. There is no pleural effusion or pneumothorax. The cardiomediastinal silhouette and pulmonary vasculature are within normal limits. No acute osseous abnormalities are seen. Impression: No evidence of acute cardiopulmonary process. Electronically signed by: Mj Haro MD (04/30/2019 9:23 AM) [id number]
[2019-04-30 09:42] LABS: BASO # 0.1 x10^3/uL (0.0-0.2); BASO % 1 % (0-3); EOS # 0.4 x10^3/uL (0.0-0.7); EOS % 5 % (0-3); HEMATOCRIT 41.5 % (36.0-47.0); HEMOGLOBIN 13.9 g/dL (12.0-15.5); LYMPH # 2.2 x10^3/uL (1.0-4.8); LYMPH % 30 % (24-48); MEAN CORPUSCULAR HEMOGLOBIN 32 pg (25-35); MEAN CORPUSCULAR HGB CONC 34 g/dL (31-37); MEAN CORPUSCULAR VOLUME 96 fL (79-100); MONO # 0.7 x10^3/uL (0.0-1.1); MONO % 9 % (0-9); NEUT % 55 % (31-73); PLATELET COUNT 273 x10^3/uL (140-400); RED BLOOD COUNT 4.33 x10^6/uL (3.50-5.40); RED CELL DISTRIBUTION WIDTH 15.4 % (11.5-14.5); WHITE BLOOD COUNT 7.4 x10^3/uL (4.0-11.0)
[2019-04-30 09:44] LABS: CALCIUM 8.8 mg/dL (8.5-10.1); CREATININE 1.1 mg/dL (0.6-1.0); GFR 60.5
--- NOTE | 2019-04-30 09:47 | EKG ---
[facility] [address] [place] [address] Test Date: 2019-04-30 Test Time: 08:42:02 Pat Name: GREG CORTES Department: Room: Gender: F Rn Bariatric: : 1955 Requested By: KESHA RUFFIN Order Number: [id number] Reading MD: Measurements Intervals Vera Rate: 71 P: 45 PA: 184 QRS: -18 QRSD: 86 T: 26 QT: 392 QTc: 430 Interpretive Statements SINUS RHYTHM VENTRICULAR PREMATURE COMPLEX(ES) LEFTWARD AXIS ABNORMAL ECG No previous ECG available for comparison
[2019-04-30 09:50] LABS: ALBUMIN 2.9 g/dL (3.4-5.0); ALBUMIN/GLOBULIN RATIO 0.7 (1.0-1.7); MAGNESIUM 1.7 mg/dL (1.8-2.4); TOTAL BILIRUBIN 0.3 mg/dL (0.2-1.0)
[2019-04-30 10:07] LABS: CREATINE KINASE 88 U/L (26-192)
[2019-04-30 10:11] LABS: PROTHROMBIN TIME PATIENT 12.5 SEC (11.7-14.0)
[2019-04-30] MEDS ORDERED: ONDANSETRON PF 4 MG/2 ML VIAL. IV PRN (11:00)
[2019-04-30] MEDS ORDERED: NITROGLYCERIN SUBLINGUAL 0.4 MG BOTTLE OF 25. SL PRN (11:00)
[2019-04-30] MEDS ORDERED: MORPHINE SULFATE 2 MG/ML VIAL. IV PRN (11:00)
[2019-04-30] MEDS ORDERED: ONDANSETRON PF 4 MG/2 ML VIAL. IVP ONE (11:00)
[2019-04-30] MEDS ORDERED: ASPIRIN 325 MG TABLET PO PRN (12:15)
[2019-04-30] MEDS ORDERED: HYDROcodone/APAP 5/325MG 1 TAB TABLET PO PRN ×2 (12:15)
--- NOTE | 2019-04-30 12:18 | PDOC1 ---
History and Physical Date of Admission Date of Admission 04/30/2019 Identification/Chief Complaint Chief Complaint Palpitations History of Present Illness History of Present Illness Patient is a 64-year-old female with past medical history of hypertension diabetes and dyslipidemia who has been in her usual state of health until approximately 1 week ago when she started complaining of urinary symptoms. The patient saw her primary care physician who started her on antibiotics for a diagnosed urinary tract infection. Patient refers having symptoms that she describes as "feeling funny" while taking her antibiotic. Of note is that the patient has not had any other medical changes and no changes to her prescription drugs either. Patient on Sunday started complaining of palpitations she went to her primary care physician and was found to have a blood pressure 180/100. She was told to double up her blood pressure medications which she has done. Patient despite this intervention has continued to have the same palpitations associated with a high blood pressure reason why she decided to come to the emergency department for further evaluation and treatment. Patient was found to be hypertensive when asked about her diet unfortunately the patient seems to not have observed a low-salt diet. The patient in the emergency department has presented a hypertension of 170 range. The patient denies any headache no blurred vision no signs of encephalopathy she does describe some chest discomfort underneath her breast bilaterally that not has localized over the precordial area but no sensation of impending doom no radiation to the carotids or the jaw. The patient denies diaphoresis with the event no nausea vomiting diarrhea no other complaints voiced. She does continue to have the palpitations that most likely are associated with her uncontrolled hypertension. We were asked to admit the patient for a cardiac rule out and to work on her blood pressure. Of note is that the patient presents the symptoms every single time she takes her antibiotic. I have assured her that I will change the antibiotic at this time and we will continue with her treatment so she can finalize her UTI treatment. Plan of care explained detail concerns addressed to the best of my abilities Past Medical History Cardiovascular: HTN, Hyperlipidemia Pulmonary: No pertinent hx CENTRAL NERVOUS SYSTEM: Periperal neuropathy GI: Constipation, GERD Heme/Onc: No pertinent hx Hepatobiliary: No pertinent hx Psych: No pertinent hx Rheumatologic: No pertinent hx Infectious disease: No pertinent hx Renal/: Other Endocrine: Diabetes Past Surgical History Past Surgical History: , Other Family History Family History: Coronary Artery Disease Social History ALCOHOL: other Drugs: None Current Problem List Problem List Problems Medical Problems: (1) Atypical chest pain Status: Acute (2) Hypertension Status: Acute (3) Palpitations Status: Acute Current Medications Current Medications Current Medications Medications (Trade) Dose Ordered Sig/Kaley Start Time Stop Time Status Last Admin Dose Admin Acetaminophen/ Hydrocodone Bitart (Lortab 5/325) 1 tab PRN Q6HRS PRN 04/30/19 12:15 Aspirin (Tomasa Aspirin) 325 mg PRN DAILY PRN 04/30/19 12:15 Aspirin (Children'S Aspirin) 324 mg 1X ONCE 04/30/19 09:00 04/30/19 09:05 DC 04/30/19 09:27 324 MG Atorvastatin Calcium (Lipitor) 40 mg QHS 04/30/19 21:00 Hydralazine HCl (Apresoline Inj) 10 mg 1X ONCE 04/30/19 09:00 04/30/19 09:05 DC 04/30/19 09:28 10 MG Linagliptin (Tradjenta) 5 mg DAILY 04/30/19 12:30 Morphine Sulfate (Morphine Sulfate) 2 mg PRN Q2HR PRN 04/30/19 11:00 05/01/19 10:59 Nitroglycerin (Nitrostat) 0.4 mg PRN Q5MIN PRN 04/30/19 11:00 04/30/19 11:24 0.4 MG Non-Formulary Medication (Losartan/ Hydrochlorothiazide (Losartan-Hctz 100-25 Mg Tab)) 1 tab DAILY 05/01/19 09:00 UNV Ondansetron HCl (Zofran) 4 mg PRN Q8HRS PRN 04/30/19 11:00 05/01/19 10:59 Sodium Chloride 1,000 ml @ 1,000 mls/hr Q1H 04/30/19 08:54 04/30/19 09:53 DC 04/30/19 09:28 1,000 MLS/HR Allergies Allergies Allergies Coded Allergies Type Severity Reaction Last Updated Verified metformin Adverse Reaction Intermediate DIZZY 08/06/15 Yes ROS Review of System CONSTITUTIONAL: No fever or chills EYES: No recent changes SKIN: No rash or itching CARDIOVASCULAR: No chest pain, syncope, palpitations, or edema RESPIRATORY: No SOB or cough GASTROINTESTINAL: No nausea, vomiting or abdominal pain NEUROLOGICAL: No headaches or weakness ENDOCRINE: No cold or heat intolerance GENITOURINARY: No urgency or frequency of urination MUSCULOSKELETAL: No back pain or joint pain LYMPHATICS: No enlarged lymph nodes PSYCHIATRIC: No anxiety or depression Physical Exam Physical Exam GEN.: No apparent distress. Alert and oriented. HEENT: Head is normocephalic, atraumatic NECK: Supple. LUNGS: Clear to auscultation. HEART: RRR, S1, S2 present. Peripheral pulses intact ABDOMEN: Soft, nontender. Positive bowel sounds. EXTREMITIES: Without any cyanosis. NEUROLOGIC: Normal speech, normal tone PSYCHIATRIC: Normal affect, normal mood. SKIN: No ulcerations Vitals Vitals Vital Signs Date Time Temp Pulse Resp B/P (MAP) Pulse Ox O2 Delivery O2 Flow Rate FiO2 04/30/19 11:24 76 168/77 04/30/19 08:27 99.0 17 95 Room Air 99.0 Labs Labs Laboratory Tests Test 04/30/19 09:20 White Blood Count 7.4 x10^3/uL (4.0-11.0) Red Blood Count 4.33 x10^6/uL (3.50-5.40) Hemoglobin 13.9 g/dL (12.0-15.5) Hematocrit 41.5 % (36.0-47.0) Mean Corpuscular Volume 96 fL (79-100) Mean Corpuscular Hemoglobin 32 pg (25-35) Mean Corpuscular Hemoglobin Concent 34 g/dL (31-37) Red Cell Distribution Width 15.4 % (11.5-14.5) Platelet Count 273 x10^3/uL (140-400) Neutrophils (%) (Auto) 55 % (31-73) Lymphocytes (%) (Auto) 30 % (24-48) Monocytes (%) (Auto) 9 % (0-9) Eosinophils (%) (Auto) 5 % (0-3) Basophils (%) (Auto) 1 % (0-3) Neutrophils # (Auto) 4.0 x10^3/uL (1.8-7.7) Lymphocytes # (Auto) 2.2 x10^3/uL (1.0-4.8) Monocytes # (Auto) 0.7 x10^3/uL (0.0-1.1) Eosinophils # (Auto) 0.4 x10^3/uL (0.0-0.7) Basophils # (Auto) 0.1 x10^3/uL (0.0-0.2) Prothrombin Time 12.5 SEC (11.7-14.0) Prothromb Time International Ratio 1.0 (0.8-1.1) Activated Partial Thromboplast Time 27 SEC (24-38) Sodium Level 138 mmol/L (136-145) Potassium Level 4.0 mmol/L (3.5-5.1) Chloride Level 103 mmol/L (98-107) Carbon Dioxide Level 26 mmol/L (21-32) Anion Gap 9 (6-14) Blood Urea Nitrogen 13 mg/dL (7-20) Creatinine 1.1 mg/dL (0.6-1.0) Estimated GFR (Cockcroft-Gault) 60.5 BUN/Creatinine Ratio 12 (6-20) Glucose Level 169 mg/dL (70-99) Calcium Level 8.8 mg/dL (8.5-10.1) Magnesium Level 1.7 mg/dL (1.8-2.4) Total Bilirubin 0.3 mg/dL (0.2-1.0) Aspartate Amino Transf (AST/SGOT) 23 U/L (15-37) Alanine Aminotransferase (ALT/SGPT) 25 U/L (14-59) Alkaline Phosphatase 70 U/L (46-116) Creatine Kinase 88 U/L (26-192) Creatine Kinase MB (Mass) < 0.5 ng/mL (0.0-3.6) Creatine Kinase MB Relative Index % (0-4) Troponin I Quantitative < 0.017 ng/mL (0.000-0.055) FW-Eoz-E-Type Natriuretic Peptide 61 pg/mL (0-124) Total Protein 7.0 g/dL (6.4-8.2) Albumin 2.9 g/dL (3.4-5.0) Albumin/Globulin Ratio 0.7 (1.0-1.7) Lipase 91 U/L (73-393) Thyroid Stimulating Hormone (TSH) 2.415 uIU/mL (0.358-3.74) Laboratory Tests Test 04/30/19 09:20 White Blood Count 7.4 x10^3/uL (4.0-11.0) Red Blood Count 4.33 x10^6/uL (3.50-5.40) Hemoglobin 13.9 g/dL (12.0-15.5) Hematocrit 41.5 % (36.0-47.0) Mean Corpuscular Volume 96 fL (79-100) Mean Corpuscular Hemoglobin 32 pg (25-35) Mean Corpuscular Hemoglobin Concent 34 g/dL (31-37) Red Cell Distribution Width 15.4 % (11.5-14.5) Platelet Count 273 x10^3/uL (140-400) Neutrophils (%) (Auto) 55 % (31-73) Lymphocytes (%) (Auto) 30 % (24-48) Monocytes (%) (Auto) 9 % (0-9) Eosinophils (%) (Auto) 5 % (0-3) Basophils (%) (Auto) 1 % (0-3) Neutrophils # (Auto) 4.0 x10^3/uL (1.8-7.7) Lymphocytes # (Auto) 2.2 x10^3/uL (1.0-4.8) Monocytes # (Auto) 0.7 x10^3/uL (0.0-1.1) Eosinophils # (Auto) 0.4 x10^3/uL (0.0-0.7) Basophils # (Auto) 0.1 x10^3/uL (0.0-0.2) Prothrombin Time 12.5 SEC (11.7-14.0) Prothromb Time International Ratio 1.0 (0.8-1.1) Activated Partial Thromboplast Time 27 SEC (24-38) Sodium Level 138 mmol/L (136-145) Potassium Level 4.0 mmol/L (3.5-5.1) Chloride Level 103 mmol/L (98-107) Carbon Dioxide Level 26 mmol/L (21-32) Anion Gap 9 (6-14) Blood Urea Nitrogen 13 mg/dL (7-20) Creatinine 1.1 mg/dL (0.6-1.0) Estimated GFR (Cockcroft-Gault) 60.5 BUN/Creatinine Ratio 12 (6-20) Glucose Level 169 mg/dL (70-99) Calcium Level 8.8 mg/dL (8.5-10.1) Magnesium Level 1.7 mg/dL (1.8-2.4) Total Bilirubin 0.3 mg/dL (0.2-1.0) Aspartate Amino Transf (AST/SGOT) 23 U/L (15-37) Alanine Aminotransferase (ALT/SGPT) 25 U/L (14-59) Alkaline Phosphatase 70 U/L (46-116) Creatine Kinase 88 U/L (26-192) Creatine Kinase MB (Mass) < 0.5 ng/mL (0.0-3.6) Creatine Kinase MB Relative Index % (0-4) Troponin I Quantitative < 0.017 ng/mL (0.000-0.055) EK-Ikn-Q-Type Natriuretic Peptide 61 pg/mL (0-124) Total Protein 7.0 g/dL (6.4-8.2) Albumin 2.9 g/dL (3.4-5.0) Albumin/Globulin Ratio 0.7 (1.0-1.7) Lipase 91 U/L (73-393) Thyroid Stimulating Hormone (TSH) 2.415 uIU/mL (0.358-3.74) VTE Prophylaxis Ordered VTE Prophylaxis Devices: No VTE Pharmacological Prophylaxi: Yes Assessment/Plan Assessment/Plan Hypertensive urgency Dyslipidemia Diabetes mellitus type 2 Morbid obesity with a BMI of 50 Obesity hypoventilation syndrome very likely Dietary transgressions Chronic kidney disease stage II Plan: Follow repeat troponins We will titrate her medications to provide better BP control Follow troponins If troponins are negative and her blood pressure is better controlled and remains asymptomatic patient may be dismissed in the a.m. most likely. We will resume her home medication was available for review DVT prophylaxis with Lovenox unless she is on anticoagulant LIN LOPEZ MD Apr 30, 2019 12:17
[2019-04-30] MEDS: LINAGLIPTIN 5 MG TABLET PO SCH (12:30)
[2019-04-30] MEDS: hydroCHLOROthiazide 25 MG TABLET PO SCH (12:30)
--- NOTE | 2019-04-30 12:33 | EKG ---
[facility] [address] [place] [address] Test Date: 2019-04-30 Test Time: 12:30:53 Pat Name: GREG CORTES Department: Room: Gender: F Marketing Administrator: : 1955 Requested By: KESHA RUFFIN Order Number: [id number] Reading MD: Measurements Intervals [place] Rate: 74 P: 39 CA: 182 QRS: -24 QRSD: 86 T: 28 QT: 402 QTc: 446 Interpretive Statements SINUS RHYTHM VENTRICULAR PREMATURE COMPLEX(ES) LEFTWARD AXIS ABNORMAL ECG No previous ECG available for comparison
[2019-04-30 12:50] VITALS: BP 175/82
--- NOTE | 2019-04-30 13:00 | PDOC2 ---
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 This is sharp coming in waves started this morning and sometimes hurt when she takes a deep breath. This lasted at least for about an hour before finally easing up such currently it is now absent. Denies any SOA. Her mobility is limited due to knee and back issues but no mention of any pending surgeries. She takes tylenol PRN for the discomfort. No recent falls or injury. She lives a sedentary life with known ARABELLA with likely intermittent use of CPAP accdg to her. Also with uncontrolled HTN and DM as she is not compliant with low sodium diet and carb counting. Her SBP has been the 180s and her avapro has been doubled. She tried diuretic in the past but it gave her cramps. She continues to ingest big amount of gin seagram drinking at least about a cup a day. No hx of CAD and last stress test was about 2 yrs ago. She is due to see a boring machine operator vertical on 05/23/2019. Complains of intermittent palpitations but also described it as pounding but no arrhythmias were noted in the past with event monitor and on metoprolol for it. She does not check her BP at home regularly. Denies any recent wt gain. PAST MEDICAL HISTORY Past Medical History Cardiovascular: HTN, Hyperlipidemia, coronary calcifications via CT 2015 Pulmonary: ARABELLA with CPAP use CENTRAL NERVOUS SYSTEM: Peripheral neuropathy GI: Constipation, GERD (with spicy foods) Heme/Onc: No pertinent hx Hepatobiliary: No pertinent hx Psych: No pertinent hx Musculoskeletal: Osteoarthritis (left knee), chronic low back pain Rheumatologic: No pertinent hx Infectious disease: No pertinent hx ENT: Allergic Rhinitis Renal/: Other (renal calculi requring ureteral stent placement; 2013) Endocrine: Diabetes Dermatology: No pertinent hx Dermatology: Other (acathoses nigricans) PAST SURGICAL HISTORY Past Surgical History (X 2), Other (ureteral stent - 2013) FAMILY HISTORY Family History Coronary Artery Disease (both parents of [place]) SOCIAL HISTORY Smoke: No ALCOHOL: heavy Drugs: None Lives: with Family CURRENT MEDICATIONS CURRENT MEDICATIONS Current Medications Medications (Trade) Dose Ordered Sig/Kaley Route PRN Reason Start Time Stop Time Status Last Admin Dose Admin Aspirin (Children'S Aspirin) 324 mg 1X ONCE PO 04/30/19 09:00 04/30/19 09:05 DC 04/30/19 09:27 Sodium Chloride 1,000 ml @ 1,000 mls/hr Q1H IV 04/30/19 08:54 04/30/19 09:53 DC 04/30/19 09:28 Hydralazine HCl (Apresoline Inj) 10 mg 1X ONCE IVP 04/30/19 09:00 04/30/19 09:05 DC 04/30/19 09:28 Ondansetron HCl (Zofran) 4 mg 1X ONCE IVP 04/30/19 11:00 04/30/19 11:01 DC 04/30/19 11:23 Nitroglycerin (Nitrostat) 0.4 mg PRN Q5MIN PRN SL CHEST PAIN 04/30/19 11:00 04/30/19 11:24 ALLERGIES ALLERGIES: Coded Allergies: metformin (Verified Adverse Reaction, Intermediate, DIZZY, 08/06/15) DIZZY ROS Review of System 14 point ROS evaluated with pertinent positives noted per HPI PHYSICAL EXAM General: Alert, Oriented X3, Cooperative, No acute distress HEENT: Atraumatic, Mucous membr. moist/pink Lungs: Clear to auscultation, Normal air movement Heart: Regular rate (SR), Normal S1, Normal S2, No murmurs Abdomen: Soft, No tenderness, Other (obese) Extremities: No cyanosis, No edema Skin: No breakdown, No significant lesion Neuro: Normal speech, Sensation intact Psych/Mental Status: Mental status NL, Mood NL MUSCULOSKELETAL: Osteoarthritic changes both hands VITALS/I&O VITALS/I&O: Vital Signs Date Time Temp Pulse Resp B/P (MAP) Pulse Ox O2 Delivery O2 Flow Rate FiO2 04/30/19 12:50 99.6 68 18 175/82 (113) 98 Room Air 99.6 LABS Lab: Laboratory Tests Test 04/30/19 09:20 04/30/19 11:30 White Blood Count 7.4 x10^3/uL (4.0-11.0) Red Blood Count 4.33 x10^6/uL (3.50-5.40) Hemoglobin 13.9 g/dL (12.0-15.5) Hematocrit 41.5 % (36.0-47.0) Mean Corpuscular Volume 96 fL (79-100) Mean Corpuscular Hemoglobin 32 pg (25-35) Mean Corpuscular Hemoglobin Concent 34 g/dL (31-37) Red Cell Distribution Width 15.4 % (11.5-14.5) H Platelet Count 273 x10^3/uL (140-400) Neutrophils (%) (Auto) 55 % (31-73) Lymphocytes (%) (Auto) 30 % (24-48) Monocytes (%) (Auto) 9 % (0-9) Eosinophils (%) (Auto) 5 % (0-3) H Basophils (%) (Auto) 1 % (0-3) Neutrophils # (Auto) 4.0 x10^3/uL (1.8-7.7) Lymphocytes # (Auto) 2.2 x10^3/uL (1.0-4.8) Monocytes # (Auto) 0.7 x10^3/uL (0.0-1.1) Eosinophils # (Auto) 0.4 x10^3/uL (0.0-0.7) Basophils # (Auto) 0.1 x10^3/uL (0.0-0.2) Prothrombin Time 12.5 SEC (11.7-14.0) Prothrombin Time INR 1.0 (0.8-1.1) Activated Partial Thromboplast Time 27 SEC (24-38) Sodium Level 138 mmol/L (136-145) Potassium Level 4.0 mmol/L (3.5-5.1) Chloride Level 103 mmol/L (98-107) Carbon Dioxide Level 26 mmol/L (21-32) Anion Gap 9 (6-14) Blood Urea Nitrogen 13 mg/dL (7-20) Creatinine 1.1 mg/dL (0.6-1.0) H Estimated GFR (Cockcroft-Gault) 60.5 BUN/Creatinine Ratio 12 (6-20) Glucose Level 169 mg/dL (70-99) H Calcium Level 8.8 mg/dL (8.5-10.1) Magnesium Level 1.7 mg/dL (1.8-2.4) L Total Bilirubin 0.3 mg/dL (0.2-1.0) Aspartate Amino Transferase (AST) 23 U/L (15-37) Alanine Aminotransferase (ALT) 25 U/L (14-59) Alkaline Phosphatase 70 U/L (46-116) Creatine Kinase 88 U/L (26-192) Creatine Kinase MB (Mass) < 0.5 ng/mL (0.0-3.6) Creatine Kinase MB Relative Index % (0-4) Troponin I Quantitative < 0.017 ng/mL (0.000-0.055) < 0.017 ng/mL (0.000-0.055) [id number]-Fpq-M-Type Natriuretic Peptide 61 pg/mL (0-124) Total Protein 7.0 g/dL (6.4-8.2) Albumin 2.9 g/dL (3.4-5.0) L Albumin/Globulin Ratio 0.7 (1.0-1.7) L Lipase 91 U/L (73-393) Thyroid Stimulating Hormone (TSH) 2.415 uIU/mL (0.358-3.74) Laboratory Tests 04/30/19 09:20 Laboratory Tests 04/30/19 09:20 ASSESSMENT/PLAN ASSESSMENT/PLAN 1. Atypical chest pain: trops nml. EKG SR/LAFB no acute changes. appears to be MSK/cramp related 2. HTN urgency 3. HLD 4. ETOH abuse: at least 1 cup of segrams gin nightly 5. GERD 6. Morbid obesity 7. DM2: BG uncontrolled 8. ARABELLA: CPAP use Recommendations 1. Takes avapro at home. Continue per hospital formulary with losartan at 100 mg and restart HCTZ. Will DC metoprolol and start on coreg. Modify BP regimen per BP trend. 2. Dietitian consult for carb counting, wt loss, and DASH diet. Discussed compliance of CPAP, diet, exercise. Will need significant lifestyle modification. Discussed interaction of meds with ETOH. 3. No cardiac testing at this time. Praful defer to her boring machine operator vertical with appt on 05/23/2019 4. May need treatment for ETOH withdrawal, defer to PCP 5. Replace Mg. PPI. RHIANNON MARTINEZ MD 05/01/19 1130: CARDIAC CONSULT ASSESSMENT/PLAN ASSESSMENT/PLAN Patient seen and examined 3/11/20 (late entry). Agree with STONE DECORATOR's assessment and plan. Chest pain with atypical features and most probably musculoskeletal. Agree with initiating losartan/HCTZ and Coreg for better blood pressure control Monitor for alcohol withdrawal thank you for your call she should. SANDRA OQUENDO APRN Apr 30, 2019 13:00 RHIANNON MARTINEZ MD May 01, 2019 11:30
[2019-04-30] MEDS ORDERED: GLIP5TAB10 PO (13:03)
[2019-04-30] MEDS ORDERED: METO-247 PO (13:05)
[2019-04-30] MEDS ORDERED: DEXTROSE 50% 25 GM / 50ML DISP.SYRIN. IV PRN (13:45)
[2019-04-30 15:00] VITALS: BP 148/70
[2019-04-30] MEDS: LOSARTAN POTASSIUM 50 MG TABLET. PO SCH (15:45)
[2019-04-30] MEDS: CEFDINIR 300 MG CAPSULE PO SCH ×2 (15:45→21:02)
[2019-04-30] MEDS ORDERED: MAGNESIUM SULFATE 2GM 50 ML IV ONE (16:30)
[2019-04-30] MEDS: INSULIN LISPRO 300 UNITS/3 ML VIAL. SQ SCH (17:00)
[2019-04-30] MEDS: CARVEDILOL 12.5 MG TABLET. PO SCH (17:17)
[2019-04-30] MEDS: glipiZIDE 5 MG TABLET PO SCH (17:17)
[2019-04-30 19:17] VITALS: BP 131/63
[2019-04-30] MEDS ORDERED: ATORVASTATIN CALCIUM 40 MG TABLET. PO SCH (21:00)
[2019-04-30] MEDS ORDERED: METOPROLOL SUCC 24HR ER 100 MG TAB.ER.24H. PO SCH (21:00)
[2019-04-30 23:19] VITALS: BP 137/69
[2019-05-01 03:21] VITALS: BP 124/66
[2019-05-01 07:00] VITALS: BP 140/78
[2019-05-01] MEDS: INSULIN LISPRO 300 UNITS/3 ML VIAL. SQ SCH ×2 (07:59→12:41)
[2019-05-01] MEDS ORDERED: PANTOPRAZOLE 40 MG TABLET.DR. PO SCH (08:00)
[2019-05-01] MEDS: hydroCHLOROthiazide 25 MG TABLET PO SCH (08:51)
[2019-05-01] MEDS: LOSARTAN POTASSIUM 50 MG TABLET. PO SCH (08:52)
[2019-05-01] MEDS: glipiZIDE 5 MG TABLET PO SCH (08:52)
[2019-05-01] MEDS: CARVEDILOL 12.5 MG TABLET. PO SCH (08:53)
[2019-05-01] MEDS: CEFDINIR 300 MG CAPSULE PO SCH (08:53)
[2019-05-01] MEDS: LINAGLIPTIN 5 MG TABLET PO SCH (08:53)
[2019-05-01] MEDS ORDERED: NON FORMULARY ITEM (Losartan/Hydrochlorothiazide (Losartan-Hctz 100-25 Mg Tab) 1 TAB) PO SCH (09:00)
[2019-05-01 11:00] VITALS: BP 163/88
--- NOTE | 2019-05-01 11:23 | PDOC ---
[facility] [facility] [facility]GRESS NOTE Chief Complaint Chief Complaint Atypical Chest Pain, HTN, Palpitations History of Present Illness History of Present Illness Pt seen and examined Chart reviewed Discussed care w/ RN and Cardiology Consult Vitals/I&O Vitals/I&O: Vital Signs Date Time Temp Pulse Resp B/P (MAP) Pulse Ox O2 Delivery O2 Flow Rate FiO2 05/01/19 08:53 77 140/78 05/01/19 08:00 Room Air 05/01/19 07:00 97.8 16 97 97.8 I & O 04/30/19 04/30/19 05/01/19 15:00 23:00 07:00 Intake Total 1000 ml 540 ml 350 ml Output Total 550 ml Balance 1000 ml -10 ml 350 ml Physical Exam General: Alert, Oriented X3, Cooperative, No acute distress Heart: Regular rate (SR), Normal S1, Normal S2, No murmurs Lungs: Clear Abdomen: Soft, No tenderness, Other (obese) Extremities: No cyanosis, No edema Skin: No breakdown, No significant lesion Labs Labs: Laboratory Tests Test 04/30/19 11:30 04/30/19 16:47 04/30/19 18:10 04/30/19 20:24 Troponin I Quantitative < 0.017 ng/mL (0.000-0.055) < 0.017 ng/mL (0.000-0.055) Glucose (Fingerstick) 160 mg/dL (70-99) 166 mg/dL (70-99) Test 05/01/19 00:08 05/01/19 07:55 Troponin I Quantitative < 0.017 ng/mL (0.000-0.055) Glucose (Fingerstick) 148 mg/dL (70-99) Review of Systems Review of Systems: GEN: No abnormal weight changes CV: palpitations PULM: SOB Assessment and Plan Assessmemt and Plan ASSESSMENT: Hypertensive urgency Dyslipidemia Diabetes mellitus type 2 Morbid obesity with a BMI of 50 Obesity hypoventilation syndrome very likely Dietary transgressions Chronic kidney disease stage II Plan: Follow repeat troponins We will titrate her medications to provide better BP control Follow troponins If troponins are negative and her blood pressure is better controlled and remains asymptomatic patient may be dismissed in the a.m. most likely. We will resume her home medication was available for review DVT prophylaxis with Lovenox unless she is on anticoagulant Possible DC today if Cardiology clears pt Cardiology input greatly appreciated Problems Medical Problems: (1) Atypical chest pain Status: Acute (2) Hypertension Status: Acute (3) Palpitations Status: Acute Comment Review of Relevant I have reviewed the following items portia (where applicable) has been applied. Medications: Current Medications Medications (Trade) Dose Ordered Sig/Kaley Route PRN Reason Start Time Stop Time Status Last Admin Dose Admin Atorvastatin Calcium (Lipitor) 40 mg QHS PO 04/30/19 21:00 04/30/19 21:01 Cefdinir (Omnicef) 300 mg BID PO 04/30/19 12:30 05/01/19 08:53 Losartan Potassium (Cozaar) 100 mg DAILY PO 04/30/19 12:30 05/01/19 08:52 Hydrochlorothiazide (Hydrodiuril) 25 mg DAILY PO 04/30/19 12:30 05/01/19 08:51 Enoxaparin Sodium (Lovenox 60mg Syringe) 60 mg Q12HR SQ 04/30/19 12:30 05/01/19 08:54 Glipizide (Glucotrol) 5 mg BIDAC PO 04/30/19 16:30 05/01/19 08:52 Carvedilol (Coreg) 12.5 mg BIDWMEALS PO 04/30/19 17:00 05/01/19 08:53 Magnesium Sulfate 50 ml @ 25 mls/hr 1X ONCE IV 04/30/19 16:30 04/30/19 18:29 DC 04/30/19 17:22 Pantoprazole Sodium (Protonix) 40 mg DAILYAC PO 05/01/19 08:00 05/01/19 08:53 BILL MARIE III DO May 01, 2019 11:23
[2019-05-01] MEDS ORDERED: CARV25TA2 PO (13:05)
[2019-05-01] MEDS ORDERED: PANT40TA77 PO (13:06)
--- NOTE | 2019-05-01 13:53 | NUR ---
Discharge Note: GREG CORTES Discharge instructions and discharge home medications reviewed with Patient and a copy given. All questions have been answered and understanding verbalized. The following instructions and handouts were given: carvedilol, pantoprazole Patient discharged to home with family via wheelchair.
[2019-05-01] MEDS ORDERED: LACTOBACILLUS RHAMNOSUS GG 1 CAPSULE. PO SCH (21:00)
== END 2019-05-01 13:56 | disposition home or self-care (01) ==
LOC: ER 08:13 → 2 NORTH 10:53
PROVIDERS: ADMIT Internal Medicine; ATTEND Internal Medicine
DX: R07.89 Other chest pain (principal); I10 Essential (primary) hypertension; R00.2 Palpitations; E11.9 Type 2 diabetes mellitus without complications; E78.5 Hyperlipidemia, unspecified; K21.9 Gastro-esophageal reflux disease without esophagitis; Z98.891 History of uterine scar from previous surgery; Z87.442 Personal history of urinary calculi
CPT/HCPCS: 36415; 71045; 80053; 82553; 82962; 83690; 83735; 83880; 84443; 84484; 85025; 85610; 85730; 93005; 96365; 96366; 96372; 96375; 99285; G0378; G0379; J0360; J1650; J1815; J2405; J3475; J7030